=== PATIENT | female | born 1965 | race Caucasian/White ===

== ENCOUNTER → 2018-04-30 | Outpatient (CLI) | payer BC ==
[~2018-04-30] MED LIST: BREO ELLIPTA 11 EACH; BREO ELLIPTA 11 EACH INH; CLEM1.34 PO; DIPH50 PO; ESTR2 PO; FEXPSEER PO; METO25ER PO; MONT10T PO; NAPR220 PO; PROG100 PO; Sudogest120 MG PO; Veramyst10 GM INH; ZYRTEC10 M1 PO
[2018-05-02 14:11] LABS: HPV 16 Negative (Negative); HPV 18 Negative (Negative); HPV OTHER HR TYPES Negative (Negative)
== END | disposition home or self-care (01) ==
LOC: LAB SHORT 09:45 → LAB 09:45
PROVIDERS: Obstetrics & Gynecology Gynecology
DX: Z12.4 Encounter for screening for malignant neoplasm of cervix (principal)
CPT/HCPCS: 87624; G0123

== ENCOUNTER → 2018-09-13 | Outpatient (CLI) | payer BC ==
[~2018-09-13] MED LIST changes: +ALBU90OI INH; +ARNUITY ELLIPT50 MCG INH; +Amitiza24 MCG PO; +CHOL10002 PO; +FLAX PO; +HYDCHL12.5 PO; +Hair, Skin & N1 EACH PO; +IRON PO; +L-Lysine500 M1 PO; +LUTEIN PO; +MAGNESIUM MALATE PO; +MELA3 PO; +Percocet 5-3251 EACH PO; +Ventolin5 MG/1 ML INH
== END | disposition home or self-care (01) ==
LOC: LAB SHORT 18:27 → LAB EV 18:27
DX: R50.9 Fever, unspecified (principal)
CPT/HCPCS: 87070

== ENCOUNTER → 2019-05-13 | Outpatient (CLI) | payer BC ==
[2019-05-15 16:07] LABS: HPV 16 Negative (Negative); HPV 18 Negative (Negative); HPV OTHER HR TYPES Negative (Negative)
== END | disposition home or self-care (01) ==
LOC: LAB SHORT 08:36 → LAB 08:36
PROVIDERS: Obstetrics & Gynecology Gynecology
DX: Z12.4 Encounter for screening for malignant neoplasm of cervix (principal)
CPT/HCPCS: 87624; G0123

== ENCOUNTER → 2021-11-30 | Outpatient (CLI) | payer BC | END | disposition home or self-care (01) | LOC: LAB SHORT 07:44 → PLD 07:44 | DX: L30.8 Other specified dermatitis (principal) | CPT/HCPCS: 88305 ==

== ENCOUNTER → 2023-10-10 | Outpatient (CLI) | payer BC ==
[2023-10-11 09:11] LABS: BILIRUBIN, TOTAL 0.2 mg/dL (0.0-1.2); CALCIUM, SERUM 9.7 mg/dL (8.7-10.2); CREATININE, SERUM 0.73 mg/dL (0.57-1.00); GLOBULIN, TOTAL 2.4 g/dL (1.5-4.5); POTASSIUM, SERUM 4.2 mmol/L (3.5-5.2); PROTEIN, TOTAL, SERUM 7.1 g/dL (6.0-8.5)
== END | disposition home or self-care (01) ==
LOC: LAB SHORT 11:42 → LAB 11:42
PROVIDERS: Family Medicine
DX: R10.84 Generalized abdominal pain (principal)
CPT/HCPCS: 80053